=== PATIENT | female | born 1960 | race African-American/Black ===

== ENCOUNTER 2019-08-02 23:59 | Inpatient (IN) | payer MEDICARE, MEDICAID ==
[~2019-08-02] VITALS: Ht 160 cm; Wt 64.4 kg
[~2019-08-02 23:59] MED LIST: ACET-2163 PO; ALBU8HFA IH; CARI350T26 PO; LORA10TA7 PO; LORA1TAB3 PO; LURA40TA2 PO; MOME17N NASAL; ONDA-104 PO; OXYC-601 PO; PANT40TA25 PO; TOPI100T37 PO; TRAZ-257 PO
[2019-08-03] MEDS ORDERED: LORazepam 2 MG TABLET PO ONE (03:15)
[2019-08-03 03:28] LABS: BASOPHILS % (AUTO) 0.3 % (0.0-2.0); EOSINOPHILS % (AUTO) 0.2 % (1.0-6.0); HEMATOCRIT 40.2 % (36-46); HEMOGLOBIN 12.8 g/dL (12.0-16.0); LYMPHOCYTES # (AUTO) 2.3 K/uL (1.0-4.8); LYMPHOCYTES % (AUTO) 39.7 % (22.0-44.0); MEAN CORPUSCULAR HEMOGLOBIN 28.7 pg (26.0-34.0); MEAN CORPUSCULAR HGB CONC 31.9 G/dL (31.0-37.0); MEAN CORPUSCULAR VOLUME 90 fL (80-100); MONOCYTES # (AUTO) 0.5 K/uL (0.1-1.0); MONOCYTES % (AUTO) 8.5 % (2.0-9.0); NEUTROPHILS % (AUTO) 51.3 % (40.0-70.0); PLATELET COUNT (AUTO) 277 K/uL (150-450); RED BLOOD CELL COUNT(AUTO) 4.47 MIL/uL (4.00-5.20); RED CELL DISTRIBUTION WIDTH 14.3 % (11.5-14.5)
[2019-08-03 03:35] LABS: ANION GAP 9 mmol/L (8-16); CARBON DIOXIDE 29 mmol/L (22-29); CHLORIDE 104 mmol/L (98-107); CREATININE 0.82 mg/dL (0.60-1.30); GLOMERULAR FILTR. RATE CALC > 60 mL/min (>60); GLUCOSE,RANDOM 120 mg/dL (70-110); POTASSIUM 3.1 mmol/L (3.5-5.1); SODIUM SERUM 142 mmol/L (136-145); UREA NITROGEN, BLOOD 18 mg/dL (7-18)
[2019-08-03 03:41] LABS: ALANINE AMINOTRANSFERASE 23 U/L (12-78); ALBUMIN 4.3 g/dL (3.4-5.0); ALKALINE PHOSPHATASE 72 U/L (46-116); ASPARTATE AMINOTRANSFERASE 14 U/L (15-37); BILIRUBIN,TOTAL 0.6 mg/dL (0.1-1.0); TOTAL PROTEIN, SERUM 8.3 g/dL (6.4-8.2)
[2019-08-03] MEDS ORDERED: ZOLPIDEM TARTRATE 10 MG TABLET PO PRN (04:00)
[2019-08-03] MEDS ORDERED: HALOPERIDOL 5 MG TABLET PO PRN (04:00)
[2019-08-03] MEDS ORDERED: POTASSIUM CHLORIDE 10 MEQ ER TABLET PO ONE (04:15)
[2019-08-03 05:15] VITALS: BP 147/73
[2019-08-03 05:31] VITALS: BP 147/73
[2019-08-03 09:49] VITALS: BP 128/47
[2019-08-03] MEDS ORDERED: ACETAMINOPHEN 325 MG TABLET PO PRN (12:45)
[2019-08-03] MEDS ORDERED: BACITRACIN 28.4 GM OINTMENT TP PRN (12:45)
[2019-08-03] MEDS ORDERED: DOCUSATE SODIUM 100 MG CAPSULE PO PRN (12:45)
[2019-08-03] MEDS ORDERED: OMEPRAZOLE 20 MG CAPSULE PO PRN (12:45)
[2019-08-03] MEDS ORDERED: IBUPROFEN 600 MG TABLET PO PRN (12:45)
[2019-08-03] MEDS ORDERED: ALBUTEROL SULFATE HFA 90 MCG/PUFF 8 GM INHALER IH PRN (12:45)
[2019-08-03] MEDS ORDERED: PETROLATUM,WHITE 28 GM JELLY TP PRN (12:45)
[2019-08-03] MEDS ORDERED: MAGNESIUM HYDROXIDE SUSPENSION 30 ML UDCUP PO PRN (12:45)
[2019-08-03] MEDS ORDERED: LOPERAMIDE HCL 2 MG CAPSULE PO PRN (12:45)
[2019-08-03] MEDS ORDERED: BENZOCAINE/MENTHOL LOZENGE MM PRN (12:45)
[2019-08-03] MEDS ORDERED: ONDANSETRON HCL 4 MG TABLET PO PRN (12:45)
[2019-08-03] MEDS ORDERED: MAG HYDROX/AL HYDROX/SIMETH ES 30 ML SUSPENSION UDCUP PO PRN (12:45)
[2019-08-03] MEDS ORDERED: CloNIDine HCL 0.1 MG TABLET PO PRN (12:45)
[2019-08-03] MEDS: LORazepam 2 MG TABLET PO PRN (15:04)
[2019-08-04 08:41] LABS: CHOL/HDL RATIO 1.9 (3.9-5.7); POTASSIUM 3.4 mmol/L (3.5-5.1)
[2019-08-04 11:37] VITALS: BP 112/60
[2019-08-04] MEDS: LORazepam 2 MG TABLET PO PRN (12:42)
[2019-08-04] MEDS: ESCITALOPRAM OXALATE 10 MG TABLET PO SCH (13:45)
[2019-08-04] MEDS: GABAPENTIN 300 MG CAPSULE PO SCH ×2 (13:45→16:32)
[2019-08-04] MEDS ORDERED: ACET-2247 PO (14:15)
[2019-08-04] MEDS ORDERED: LURA60TA PO (14:15)
[2019-08-04] MEDS ORDERED: LORA-1000 PO (14:15)
[2019-08-04] MEDS: DIVALPROEX SODIUM 500 MG DR TABLET PO SCH (16:32)
[2019-08-04 17:25] VITALS: BP 142/84
[2019-08-04] MEDS ORDERED: POTASSIUM CHLORIDE 10% 40 MEQ/30 ML LIQUID UDCUP PO ONE (20:30)
[2019-08-04] MEDS: LURASIDONE HCL 80 MG TABLET PO SCH (20:56)
[2019-08-05] MEDS: GABAPENTIN 300 MG CAPSULE PO SCH ×3 (09:16→16:46)
[2019-08-05] MEDS: DIVALPROEX SODIUM 500 MG DR TABLET PO SCH ×2 (09:16→16:46)
[2019-08-05] MEDS: ESCITALOPRAM OXALATE 10 MG TABLET PO SCH (09:16)
[2019-08-05 10:57] VITALS: BP 118/58
[2019-08-05 17:00] VITALS: BP 116/84
[2019-08-05] MEDS: LORazepam 2 MG TABLET PO PRN (18:03)
[2019-08-05] MEDS: LURASIDONE HCL 80 MG TABLET PO SCH (20:42)
[2019-08-06 08:14] LABS: ANION GAP 11 mmol/L (8-16); CALCIUM, TOTAL 9.3 mg/dL (8.8-10.5); CARBON DIOXIDE 27 mmol/L (22-29); CHLORIDE 107 mmol/L (98-107); CREATININE 0.76 mg/dL (0.60-1.30); GLOMERULAR FILTR. RATE CALC > 60 mL/min (>60); GLUCOSE,RANDOM 71 mg/dL (70-110); POTASSIUM 4.5 mmol/L (3.5-5.1); SODIUM SERUM 145 mmol/L (136-145); UREA NITROGEN, BLOOD 16 mg/dL (7-18)
[2019-08-06] MEDS: DIVALPROEX SODIUM 500 MG DR TABLET PO SCH ×2 (08:56→16:09)
[2019-08-06] MEDS: GABAPENTIN 300 MG CAPSULE PO SCH ×3 (08:56→16:09)
[2019-08-06] MEDS: ESCITALOPRAM OXALATE 10 MG TABLET PO SCH (08:56)
[2019-08-06 09:48] VITALS: BP 131/82
[2019-08-06 16:55] VITALS: BP 125/75
[2019-08-06] MEDS: LURASIDONE HCL 80 MG TABLET PO SCH (20:19)
[2019-08-07] MEDS: GABAPENTIN 300 MG CAPSULE PO SCH ×3 (08:27→17:03)
[2019-08-07] MEDS: DIVALPROEX SODIUM 500 MG DR TABLET PO SCH ×2 (08:27→17:03)
[2019-08-07] MEDS: ESCITALOPRAM OXALATE 10 MG TABLET PO SCH (08:28)
[2019-08-07 12:37] VITALS: BP 123/74
[2019-08-07 17:17] VITALS: BP 139/81
[2019-08-07] MEDS: LURASIDONE HCL 80 MG TABLET PO SCH (21:28)
[2019-08-08] MEDS: DIVALPROEX SODIUM 500 MG DR TABLET PO SCH (08:55)
[2019-08-08] MEDS: ESCITALOPRAM OXALATE 10 MG TABLET PO SCH (08:55)
[2019-08-08] MEDS: GABAPENTIN 300 MG CAPSULE PO SCH (08:56)
[2019-08-08 09:17] VITALS: BP 113/91
[2019-08-08 13:59] LABS: GLUCOMETER DEV NAME(LOC) 3EX.; GLUCOSE,POINT OF CARE < 10 MG/DL (70-110)
[2019-08-08 14:11] LABS: GLUCOSE,POINT OF CARE 74 MG/DL (70-110)
[2019-08-08 18:39] LABS: GLUCOMETER DEV NAME(LOC) 5S.1; GLUCOSE,POINT OF CARE 73 MG/DL (70-110)
[2019-08-09 01:24] LABS: GLUCOMETER DEV NAME(LOC) 5S.1; GLUCOSE,POINT OF CARE 37 MG/DL (70-110)
== END 2019-08-08 13:55 | disposition short-term general hospital (02) | DRG 885 ==
LOC: EMS 08-03 → 3EX 08-03 04:01
PROVIDERS: ADMIT Psychiatry & Neurology Psychiatry; ATTEND Psychiatry & Neurology Psychiatry
DX: F31.9 Bipolar disorder, unspecified (principal); F11.20 Opioid dependence, uncomplicated; R45.851 Suicidal ideations; Z91.5 Personal history of self-harm; F25.0 Schizoaffective disorder, bipolar type; F19.10 Other psychoactive substance abuse, uncomplicated; Z91.14 Patient's other noncompliance with medication regimen; F41.9 Anxiety disorder, unspecified; I10 Essential (primary) hypertension; K59.00 Constipation, unspecified; E87.6 Hypokalemia; K21.9 Gastro-esophageal reflux disease without esophagitis; M19.90 Unspecified osteoarthritis, unspecified site; E55.9 Vitamin D deficiency, unspecified; M54.9 Dorsalgia, unspecified; F17.200 Nicotine dependence, unspecified, uncomplicated; E78.5 Hyperlipidemia, unspecified; E16.2 Hypoglycemia, unspecified
CPT/HCPCS: 84132; 84295; G0378; G0480